=== PATIENT | female | born 1950 | race Caucasian/White ===

== ENCOUNTER 2018-10-22 17:31 | Emergency (ER) | payer MEDICARE ==
--- NOTE | 2018-10-22 18:30 | ED Physician Chart ---
ED Chief Complaint/HPI - Patient Information Date Seen:: 10/22/18 Time Seen:: 18:10 Chief Complaint:: Fever History of Present Illness:: onset x 3 days of fever, cough, myalgias, and congestion; no report of trauma, H /As, S/T, neck pain, C/P, SOB, Abd. Pain, A/N/V/D/C, chills, or urinary s/s Allergies:: Allergies Allergy/AdvReac Type Severity Reaction Status Date / Time acetaminophen [From Tylenol] Allergy Verified 10/22/18 18:09 Vitals:: Vital Signs - 8 hr 10/22/18 18:11 Temp 99.9 F HR 103 RR 22 BP 126/68 O2 Sat % 96 Historian:: Patient Review:: Nurse's Note Reviewed, Old Chart Reviewed <Edi Flowers - Last Filed: 10/22/18 18:26> - Patient Information Allergies:: Allergies Allergy/AdvReac Type Severity Reaction Status Date / Time acetaminophen [From Tylenol] Allergy Verified 10/22/18 18:09 Vitals:: Vital Signs - 8 hr 10/22/18 10/22/18 10/22/18 18:11 18:30 19:25 Temp 99.9 F 99.8 F 98.2 F HR 103 98 90 RR 22 20 18 BP 126/68 128/68 124/79 O2 Sat % 96 97 96 <Jack Becker - Last Filed: 10/23/18 10:25> ED Review of Systems - Review of Systems General/Constitutional: Fever, No chills, No weight loss, No weakness, No diaphoresis, No edema, No loss of appetite Skin: No skin lesions, No rash, No bruising Head: No headache, No light-headedness Eyes: No loss of vision, No pain, No diplopia ENT: No earache, Nasal drainage, No sore throat, No tinnitus Neck: No neck pain, No swelling, No thyromegaly, No stiffness, No mass noted Cardio Vascular: No chest pain, No palpitations, No PND, No orthopnea, No edema Pulmonary: No SOB, Cough, No sputum, No wheezing GI: No nausea, No vomiting, No diarrhea, No pain, No melena, No hematochezia, No constipation, No hematemesis G/U: No dysuria, No frequency, No hematuria, No nacturia Photograph Inspector: No vaginal discharge, No abnormal vaginal bleed, No contraction Musculoskeletal: No bone or joint pain, No back pain, Muscle pain Endocrine: No polyuria, No polydipsia Psychiatric: Prior psych history, Depression, Anxiety, No suicidal ideation, No homicidal ideation, No auditory hallucination, No visual hallucination Hematopoietic: No bruising, No lymphadenopathy Allergic/Immuno: No urticaria, No angioedema Neurological: No syncope, No focal symptoms, No weakness, No paresthesia, No headache, No seizure, No dizziness, No confusion, No vertigo <Edi Flowers - Last Filed: 10/22/18 18:26> ED Past Medical History - Past Medical History Obtainable: Yes Past Medical History: PUD/GERD, Thyroid disorder, Arthritis Family History: HTN Social History: Non Smoker, No Alcohol, No Drug Use, Surgical History: None Psychiatricy History: Depression Medication: Reviewed <Edi Flowers - Last Filed: 10/22/18 18:26> Family Medical History - Family Member Mother History Unknown: Yes <Jack Becker - Last Filed: 10/23/18 10:25> ED Physical Exam - Physical Examination General/Constitutional: Awake, Well-developed, well-nourished, Alert, No distress, GCS 15, Non-toxic appearing, Ambulatory Head: Atraumatic Eyes: Lids, conjuctiva normal, PERRL, EOMI Skin: Nl inspection, No rash, No skin lesions, No ecchymosis, Well hydrated, No lymphadenopathy ENMT: External ears, nose nl, TM canals nl, Nasal exam nl, Lips, teeth, gums nl , Oropharynx nl, Tonsils nl Neck: Nontender, Full ROM w/o pain, No JVD, No nuchal rigidity, No bruit, No mass, No stridor Respiratory: Nl effort/Exclusion, Clear to Auscultation, No Wheeze/Rhonchi/Rales Cardio Vascular: RRR, No murmur, gallop, rubs, NL S1 S2, Carotid/Femoral/Distal pulses equal bilaterally GI: No tenderness/rebounding/guarding, No organomegaly, No hernia, Normal BS's, Nondistended, No mass/bruits, No McBurney tenderness Other GI comments:: no pulsatile masses : No CVA tenderness Extremities: No tenderness or effusion, Full ROM, normal strength in all extremities, No edema, Normal digits & nails Neuro/Psych: Alert/oriented, DTR's symmetric, Normal sensory exam, Normal motor strength, Judgement/insight normal, Mood normal, Normal gait, No focal deficits Misc: Normal back, No paraspinal tenderness <[email or web address] - Last Filed: 10/22/18 18:26> ED Labs/Radiology/EKG Results - Lab Results Results: Laboratory Tests 10/22/18 10/22/18 10/22/18 18:46 18:46 18:46 WBC 4.8 RBC 4.45 Hgb 10.9 L Hct 34.2 L MCV 76.9 L MCH 24.5 L MCHC Differential 31.9 RDW 16.5 Plt Count 463 H MPV 6.6 Neutrophils % 83.7 H Lymphocytes % 5.8 L Monocytes % 8.7 Eosinophils % 0.8 Basophils % 1.0 PT 9.9 INR 0.95 PTT (Actin FS) 25.0 L Sodium 135 L Potassium 3.4 L Chloride 99 Carbon Dioxide 24.7 Anion Gap 14.7 BUN 10 Creatinine 0.7 Est GFR ( Amer) > 60.0 Est GFR (Non-Af Amer) > 60.0 BUN/Creatinine Ratio 14.3 Glucose 126 H Whole Bld Lactic Acid Calcium 9.0 Total Bilirubin 0.3 AST 16 ALT 11 Alkaline Phosphatase 100 Creatine Kinase 67 Troponin I Total Protein 7.2 Albumin 3.9 Globulin 3.3 Albumin/Globulin Ratio 1.2 Urine Source Urine Color Urine Clarity Urine pH Ur Specific Mather Urine Protein Urine Glucose (UA) Urine Ketones Urine Blood Urine Nitrate Urine Bilirubin Urine Urobilinogen Ur Leukocyte Esterase Urine RBC Urine WBC Ur Epithelial Cells Urine Bacteria Influenza A (Rapid) Influenza B (Rapid) 10/22/18 10/22/18 10/22/18 18:46 19:21 20:00 WBC RBC Hgb Hct MCV MCH MCHC Differential RDW Plt Count MPV Neutrophils % Lymphocytes % Monocytes % Eosinophils % Basophils % PT INR PTT (Actin FS) Sodium Potassium Chloride Carbon Dioxide Anion Gap BUN Creatinine Est GFR ( Amer) Est GFR (Non-Af Amer) BUN/Creatinine Ratio Glucose Whole Bld Lactic Acid 1.67 Calcium Total Bilirubin AST ALT Alkaline Phosphatase Creatine Kinase Troponin I < 0.01 L Total Protein Albumin Globulin Albumin/Globulin Ratio Urine Source [place] Urine Color YELLOW Urine Clarity CLEAR Urine pH 7.5 Ur Specific Mather 1.015 Urine Protein NEGATIVE Urine Glucose (UA) NEGATIVE Urine Ketones NEGATIVE Urine Blood NEGATIVE Urine Nitrate NEGATIVE Urine Bilirubin NEGATIVE Urine Urobilinogen 0.2 Ur Leukocyte Esterase NEGATIVE Urine RBC 0-2 Urine WBC 2-5 Ur Epithelial Cells FEW Urine Bacteria FEW Influenza A (Rapid) POS FOR INF A H Influenza B (Rapid) NEG FOR INF B <Jack Becker - Last Filed: 10/23/18 10:25> ED Assessment - Assessment General Assessment: Influenza A positive Anemia, microcytic Obesity <Jack Becker - Last Filed: 10/23/18 10:25> ED Septic Shock - . Is Septic Shock (SBP<90, OR Lactate>4 mmol\L) present?: No - <6hrs of presentation: Vital Signs: Vital Signs - 8 hr 10/22/18 18:11 Temp 99.9 F HR 103 RR 22 BP 126/68 O2 Sat % 96 <Edi Flowers - Last Filed: 10/22/18 18:26> - <6hrs of presentation: Vital Signs: Vital Signs - 8 hr 10/22/18 10/22/18 10/22/18 18:11 18:30 19:25 Temp 99.9 F 99.8 F 98.2 F HR 103 98 90 RR 22 20 18 BP 126/68 128/68 124/79 O2 Sat % 96 97 96 <Jack Becker - Last Filed: 10/23/18 10:25> ED Reassessment (Disposition) - Reassessment Reassessment Condition:: Improved - Diagnosis Diagnosis:: Fever; Myalgias <Edi Flowers - Last Filed: 10/22/18 18:26> - Reassessment Reassessment Condition:: Improved - Aftercare/Follow up Instructions Notes:: Instructed pt to follow up PCP on microcytic anemia Medication Prescribed:: Tamiflu 75mg po bid x 5 days - Patient Disposition Discharge/Transfer:: Home <Jack Becker - Last Filed: 10/23/18 10:25>
[2018-10-22 18:54] LABS: % EOSINOPHILS 0.8 % (0.0-5.0); % LYMPHOCYTES 5.8 % (20.0-50.0); % MONOCYTES 8.7 % (2.0-10.0); % NEUTROPHILS 83.7 % (40.0-80.0); HEMATOCRIT 34.2 % (41.0-60); HEMOGLOBIN 10.9 gm/dL (12-16); LYMPHOCYTE ABSOLUTE 0.3 Th/cmm (1.5-3.0); MEAN CELL VOLUME 76.9 fl (81-100); MEAN CORPUSCULAR HEMOGLOBIN 24.5 pg (27.0-31.0); MEAN CORPUSCULAR HGB CONC 31.9 pg (28.0-36.0); MEAN PLATELET VOLUME 6.6 fl; MONOCYTE ABSOLUTE 0.4 Th/cmm (0.3-1.0); NEUTROPHILE ABSOLUTE 4.1 Th/cmm (1.8-8.0); PLATELET COUNT 463 Th/cmm (150-400); RED BLOOD COUNT 4.45 Mil/cmm (3.80-5.20); RED CELL DISTRIBUTION WIDTH 16.5 % (11.5-20.0); WHITE BLOOD COUNT 4.8 Th/cmm (4.8-10.8)
[2018-10-22 19:10] LABS: ALB/GLOB RATIO 1.2 (1.0-1.8); ALBUMIN 3.9 gm/dL (3.7-5.3); ALKALINE PHOSPHATASE 100 U/L (34-104); ANION GAP 14.7 (7.0-16.0); BILIRUBIN,TOTAL 0.3 mg/dL (0.3-1.0); BUN - UREA NITROGEN 10 mg/dL (7-25); CARBON DIOXIDE 24.7 mEq/L (21.0-31.0); CHLORIDE 99 mEq/L (98-107); CREATININE - SERUM 0.7 mg/dL (0.6-1.2); CREATININE KINASE 67 U/L (30-223); GFR AFRICAN-AMERICAN > 60.0 ml/min (>90); GFR NON AFRICAN-AMERICAN > 60.0 ml/min; GLUCOSE 126 mg/dL (70-105); INR 0.95 (0.5-1.4); POTASSIUM SERUM 3.4 mEq/L (3.5-5.1); PROTHROMBIN TIME (TEST) 9.9 SECONDS (9.5-11.5); SGOT 16 U/L (13-39); SGPT/ALT 11 U/L (7-52); SODIUM SERUM 135 mEq/L (136-145); TOTAL PROTEIN,SERUM 7.2 gm/dL (6.0-8.3)
[2018-10-22 19:27] LABS: TROP I < 0.01 ng/mL (0.01-0.05)
[2018-10-22 19:28] LABS: URINE SOURCE MIDSTREAM
[2018-10-22 19:29] LABS: URINE BILIRUBIN NEGATIVE (NEGATIVE); URINE BLOOD NEGATIVE (NEGATIVE); URINE GLUCOSE (UA) NEGATIVE (NEGATIVE); URINE KETONE NEGATIVE (NEGATIVE); URINE LEUKOCYTE ESTERASE NEGATIVE (NEGATIVE); URINE NITRATE NEGATIVE (NEGATIVE); URINE PH 7.5 (4.6 - 8.0); URINE PROTEIN NEGATIVE (NEGATIVE); URINE UROBILINOGEN 0.2 E.U./dL (0.2 - 1.0)
[2018-10-22 19:30] LABS: URINE CLARITY CLEAR (CLEAR); URINE COLOR YELLOW; URINE MICROSCOPIC INDICATED? YES
[2018-10-22] MEDS ORDERED: Sodium Chloride 0.9% 1,000 ML IV ONE (19:39)
[2018-10-22] MEDS ORDERED: Potassium Chloride 20 mEq ER Tab PO ONE ×2 (19:40→19:45)
[2018-10-22 19:42] LABS: URINE BACTERIA FEW /hpf (NONE SEEN); URINE EPITHELIAL CELLS FEW /lpf (FEW); URINE RBC 0-2 /hpf (0-5)
[2018-10-22 20:30] LABS: INF A SCREEN POS FOR INF A; INF B SCREEN NEG FOR INF B
--- NOTE | 2018-10-23 09:35 | Diagnostic Imaging Report ---
CHEST X-RAY: AP view INDICATION: pain COMPARISON: None FINDINGS: Patient is mildly rotated. There is mild elevation of the right hemidiaphragm. There is no focal consolidation or pleural effusions The heart is normal in size. There is probable mild atherosclerosis of the aortic arch. External material is seen overlying the right supraclavicular region. IMPRESSION: No focal airspace consolidation identified.
== END 2018-10-22 21:30 | disposition home or self-care (01) ==
LOC: ER 17:31
DX: J10.1 Influenza due to other identified influenza virus with other respiratory manifestations (principal); M79.10 Myalgia, unspecified site; K21.9 Gastro-esophageal reflux disease without esophagitis; E07.9 Disorder of thyroid, unspecified; M19.90 Unspecified osteoarthritis, unspecified site; F32.9 Major depressive disorder, single episode, unspecified; Z88.5 Allergy status to narcotic agent
CPT/HCPCS: 99284; 96374; 93005; 71045; 84484; 36415; 83605; 87804 ×2; 85007; 85025; 85610; 85730; 81001; 82550; 80053; 87040 ×2; J1885; J7030; Z7502